=== PATIENT | female | born 1940 | race Caucasian/White ===

== ENCOUNTER 2016-06-15 11:59 | Emergency (ER) | payer MEDICARE, BC ==
[2016-06-15] MEDS ORDERED: SODIUM CHLORIDE 0.9% 1,000 ML IV ONE (12:12)
--- NOTE | 2016-06-15 12:18 | ED ---
Fall HPI - General Chief Complaint: Fall Stated Complaint: Fall Time Seen by Provider: 06/15/16 11:59 Source: patient, EMS, RN notes reviewed, old records reviewed Mode of arrival: EMS - History of Present Illness Initial Comments: This is a 76-year-old female who states she bent over to get dizzy lost her balance and fell forward striking the top of her frontal scalp on a door. She complains some anterior neck pain no loss of consciousness she denies any loss of function to her upper or lower extremities she denies any chest pain or shortness of breath at this time. She is on a blood thinner. She denies any other complaints at this time. She did come in by EMS with a cervical collar in place. Of note patient states she has Hirschsprung's disease and her abdomen is always distended she complains no bowel pain no nausea vomiting or diarrhea. MD Complaint: fall - Related Data Home Medications Medication Instructions Recorded Confirmed Atorvastatin [Lipitor] 20 mg PO HS 07/26/14 06/15/16 Fenofibrate [Lofibra] 160 mg PO DAILY 07/26/14 06/15/16 Multivitamins, Thera [Multivitamin] 1 tab PO DAILY 07/26/14 06/15/16 Sertraline [Zoloft] 50 mg PO DAILY 07/26/14 06/15/16 Ferrous Sulfate [Feosol] 325 mg PO BID 08/25/15 06/15/16 Omeprazole [PriLOSEC] 20 mg PO DAILY 08/25/15 06/15/16 Cholecalciferol [Vitamin D3] 1,000 unit PO DAILY 11/21/15 06/15/16 Albuterol Inhaler [Ventolin Hfa 1 - 2 puff INHALATION RT-Q6H PRN 11/22/15 Inhaler] Albuterol Nebulized [Ventolin 2.5 mg INHALATION RT-Q6H PRN 11/22/15 06/15/16 Nebulized] Budesonide [Pulmicort] 0.5 mg INHALATION RT-BID PRN 11/22/15 06/15/16 Potassium Chloride ER [K-Dur 10] 10 meq PO DAILY 11/22/15 06/15/16 Previous Rx's Medication Instructions Recorded Apixaban [Eliquis] 2.5 mg PO BID tablet 11/25/15 Allergies Allergy/AdvReac Type Severity Reaction Status Date / Time Penicillins Allergy Rash/Hives Verified 06/15/16 13:38 Review of Systems ROS Statement: Those systems with pertinent positive or pertinent negative responses have been documented in the HPI. ROS Other: All systems not noted in ROS Statement are negative. Past Medical History Past Medical History: Atrial Fibrillation, Cancer, Deep Vein Thrombosis (DVT), Hyperlipidemia, Osteoarthritis (OA), Skin Disorder Additional Past Medical History / Comment(s): Hx. of anemia, edema in both lower extremity. Right breast Ca. 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 Past Anesthesia/Blood Transfusion Reactions: No Reported Reaction Additional Past Anesthesia/Blood Transfusion Reaction / Comment(s): no previous blood transfusions Past Psychological History: Depression Smoking Status: Never smoker Past Alcohol Use History: None Reported Past Drug Use History: None Reported - Past Family History Mother Family Medical History: Coronary Artery Disease (CAD), CVA/TIA Father Family Medical History: CVA/TIA General Exam - General Exam Comments Initial Comments: This is a well-developed well-nourished awake alert oriented 3 female she does demonstrate a Najma Coma Scale of 15 Limitations: no limitations General appearance: alert, in no apparent distress Head exam: Present: atraumatic, normocephalic, normal inspection Eye exam: Present: normal appearance, PERRL, EOMI. Absent: scleral icterus, conjunctival injection, periorbital swelling ENT exam: Present: normal exam, mucous membranes moist Neck exam: Present: normal inspection. Absent: tenderness, meningismus, lymphadenopathy Respiratory exam: Present: normal lung sounds bilaterally. Absent: respiratory distress, wheezes, rales, rhonchi, stridor Cardiovascular Exam: Present: regular rate, normal rhythm, normal heart sounds. Absent: systolic murmur, diastolic murmur, rubs, gallop, clicks GI/Abdominal exam: Present: soft, normal bowel sounds. Absent: distended, tenderness, guarding, rebound, rigid Extremities exam: Present: full ROM, normal capillary refill, pedal edema. Absent: tenderness, joint swelling, calf tenderness Back exam: Present: normal inspection Neurological exam: Present: alert, oriented X3, CN II-XII intact Psychiatric exam: Present: normal affect, normal mood Skin exam: Present: warm, dry, intact, normal color. Absent: rash Course Vital Signs 06/15/16 12:00 Temperature 98.3 F Pulse Rate 84 Respiratory 22 Rate Blood Pressure 166/74 O2 Sat by Pulse 95 Oximetry Medical Decision Making - Lab Data Result diagrams: 06/15/16 12:06 06/15/16 12:06 Lab Results 06/15/16 06/15/16 06/15/16 Range/Units 12:06 12:06 12:06 WBC 7.3 (3.8-10.6) k/uL RBC 4.43 (3.80-5.40) m/uL Hgb 12.1 (11.4-16.0) gm/dL Hct 38.0 (34.0-46.0) % MCV 85.7 (80.0-100.0) fL MCH 27.2 (25.0-35.0) pg MCHC 31.7 (31.0-37.0) g/dL RDW 14.8 (11.5-15.5) % Plt Count 288 (150-450) k/uL Neutrophils % 60 % Lymphocytes % 27 % Monocytes % 7 % Eosinophils % 3 % Basophils % 1 % Neutrophils # 4.4 (1.3-7.7) k/uL Lymphocytes # 2.0 (1.0-4.8) k/uL Monocytes # 0.5 (0-1.0) k/uL Eosinophils # 0.2 (0-0.7) k/uL Basophils # 0.1 (0-0.2) k/uL PT (9.0-12.0) sec INR (<1.1) APTT (22.0-30.0) sec Sodium 145 (137-145) mmol/L Potassium 3.7 (3.5-5.1) mmol/L Chloride 106 (98-107) mmol/L Carbon Dioxide 27 (22-30) mmol/L Anion Gap 12 mmol/L BUN 23 H (7-17) mg/dL Creatinine 0.76 (0.52-1.04) mg/dL Est GFR (MDRD) Af Amer >60 (>60 ml/min/1.73 sqM) Est GFR (MDRD) Non-Af >60 (>60 ml/min/1.73 sqM) Glucose 133 H (74-99) mg/dL Calcium 9.7 (8.4-10.2) mg/dL Magnesium 2.0 (1.6-2.3) mg/dL Total Bilirubin 0.4 (0.2-1.3) mg/dL AST 26 (14-36) U/L ALT 34 (9-52) U/L Alkaline Phosphatase 58 (38-126) U/L Total Creatine Kinase 51 (30-135) U/L CK-MB (CK-2) 0.7 (0.0-2.4) ng/mL CK-MB (CK-2) Rel Index 1.4 Troponin I <0.012 (0.000-0.034) ng/mL Total Protein 7.3 (6.3-8.2) g/dL Albumin 3.9 (3.5-5.0) g/dL 06/15/16 Range/Units 12:06 WBC (3.8-10.6) k/uL RBC (3.80-5.40) m/uL Hgb (11.4-16.0) gm/dL Hct (34.0-46.0) % MCV (80.0-100.0) fL MCH (25.0-35.0) pg MCHC (31.0-37.0) g/dL RDW (11.5-15.5) % Plt Count (150-450) k/uL Neutrophils % % Lymphocytes % % Monocytes % % Eosinophils % % Basophils % % Neutrophils # (1.3-7.7) k/uL Lymphocytes # (1.0-4.8) k/uL Monocytes # (0-1.0) k/uL Eosinophils # (0-0.7) k/uL Basophils # (0-0.2) k/uL PT 10.4 (9.0-12.0) sec INR 1.0 (<1.1) APTT 20.6 L (22.0-30.0) sec Sodium (137-145) mmol/L Potassium (3.5-5.1) mmol/L Chloride (98-107) mmol/L Carbon Dioxide (22-30) mmol/L Anion Gap mmol/L BUN (7-17) mg/dL Creatinine (0.52-1.04) mg/dL Est GFR (MDRD) Af Amer (>60 ml/min/1.73 sqM) Est GFR (MDRD) Non-Af (>60 ml/min/1.73 sqM) Glucose (74-99) mg/dL Calcium (8.4-10.2) mg/dL Magnesium (1.6-2.3) mg/dL Total Bilirubin (0.2-1.3) mg/dL AST (14-36) U/L ALT (9-52) U/L Alkaline Phosphatase (38-126) U/L Total Creatine Kinase (30-135) U/L CK-MB (CK-2) (0.0-2.4) ng/mL CK-MB (CK-2) Rel Index Troponin I (0.000-0.034) ng/mL Total Protein (6.3-8.2) g/dL Albumin (3.5-5.0) g/dL - EKG Data -: EKG Interpreted by Me EKG shows normal: sinus rhythm (Sinus rhythm with occasional PVC. Rate was 80 MT interval 138 QRS duration 96 QT/QTC of 42/463 st-t wave changes.) - Radiology Data Radiology results: report reviewed (I did review the imaging and reports no acute findings the patient has a long-standing history of abdominal viscus dilatation.), image reviewed Disposition Clinical Impression: Fall, Forehead contusion, Dehydration Disposition: HOME SELF-CARE Condition: Good Instructions: Fall Prevention for Older Adults (ED), Dehydration (ED), Facial Contusion (ED) Referrals: Kike Tucker DO [Primary Care Provider] - 1-2 days
[2016-06-15 12:30] LABS: Basophils # (A) 0.1 k/uL (0-0.2); Basophils % (A) 1 %; CH 27.5; CHCM 32.1; Eosinophils # (A) 0.2 k/uL (0-0.7); Eosinophils % (A) 3 %; HDW 2.79; HGB 12.1 gm/dL (11.4-16.0); Luc # (Auto) 0.15; Luc % (Auto) 2; Lymphocytes % (A) 27 %; MCH 27.2 pg (25.0-35.0); MCHC 31.7 g/dL (31.0-37.0); MCV 85.7 fL (80.0-100.0); Mean Platelet Volume 6.6; Monocytes # (A) 0.5 k/uL (0-1.0); Monocytes % (A) 7 %; Neutrophils # (A) 4.4 k/uL (1.3-7.7); Neutrophils % (A) 60 %; RBC 4.43 m/uL (3.80-5.40); RDW 14.8 % (11.5-15.5); WBC 7.3 k/uL (3.8-10.6); WBC (Perox) 7.55
[2016-06-15 12:41] LABS: ALT 34 U/L (9-52); AST 26 U/L (14-36); Alkaline Phosphatase 58 U/L (38-126); Anion Gap 12 mmol/L; Blood Urea Nitrogen 23 mg/dL (7-17); Calcium 9.7 mg/dL (8.4-10.2); Carbon Dioxide 27 mmol/L (22-30); Chloride 106 mmol/L (98-107); Glucose 133 mg/dL (74-99); Non-African American GFR(MDRD) >60 (>60 ml/min/1.73 sqM); Potassium 3.7 mmol/L (3.5-5.1); Sodium 145 mmol/L (137-145); Total Bilirubin 0.4 mg/dL (0.2-1.3); Total Protein 7.3 g/dL (6.3-8.2)
--- NOTE | 2016-06-15 12:49 | CT ---
EXAMINATION TYPE: CT brain rhiannon wo con DATE OF EXAM: 06/15/2016 12:35 PM COMPARISON: NONE HISTORY: 76-year-old female with fall and pain CT DLP: 1832 mGycm Automated exposure control for dose reduction was used. Technique: Examination of the head was done in axial plane without intravenous contrast. Coronal and sagittal reconstructions performed. CT of the cervical spine was obtained in axial plane without intravenous injection of contrast mater ial. Coronal and sagittal reformatted images were obtained from the axial views for evaluation of f ractures, spinal alignment and canal. FINDINGS: Head: There is no evidence of acute intracranial hemorrhage, acute ischemic changes, mass, mass-effect, or extra-axial fluid collection. There is no effacement of cerebral sulci or basal subarachnoid cister ns. There is no hydrocephalus. There is no midline shift. Randall-white matter distinction is preserv ed. Very mild generalized supratentorial volume loss is similar to prior. There is a mild right frontal scalp contusion without underlying calvarial fracture. Normal variation of hyperostosis frontalis interna. Paranasal sinuses and mastoid air cells are well pneumatized. Cervical spine: No craniocervical junction abnormality, predental space widening, or prevertebral soft tissue swellin g. 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 Moderate variable multilevel degenerative disc disease is present greatest at C5-C6 where disc osteop hyte complex causes mild narrowing of the spinal canal. No acute fracture or malalignment of the cervical spine. Variable mild neuroforaminal stenoses are present, greatest on the right at C5-C6. Sagittal and coronal reformatted images confirm above findings. COMBINED IMPRESSION: 1. Mild right frontal scalp contusion. No acute intracranial abnormality seen. 2. No acute fracture or malalignment of the cervical spine. Mild to moderate spondylotic change.
[2016-06-15 13:01] LABS: Creatine Kinase 51 U/L (30-135)
[2016-06-15 13:09] LABS: Prothrombin Time 10.4 sec (9.0-12.0)
[2016-06-15 13:13] LABS: Creatine Kinase MB 0.7 ng/mL (0.0-2.4); Troponin I <0.012 ng/mL (0.000-0.034)
[2016-06-15 13:19] LABS: Partial Thromboplastin Time 20.6 sec (22.0-30.0)
--- NOTE | 2016-06-15 13:35 | XR ---
EXAMINATION TYPE: XR chest 2V DATE OF EXAM: 06/15/2016 1:17 PM COMPARISON: Prior chest x-ray 25 Oct 2015 HISTORY: Pain, fall, trauma TECHNIQUE: Frontal and lateral views of the chest are obtained. FINDINGS: The heart remains enlarged. Patient is again rotated. No evident pneumothorax or pleural e ffusion. Dilated loops of bowel, air-filled stomach is again noted as on prior exam. No evident fract ure, there are overlying cardiac leads. Exam may be expiratory, question prominence of the interstiti um. There may be a spinal curvature. IMPRESSION: Persistence of marked cardiomegaly. Consider follow-up PA and lateral chest when stable. Additional findings above.
[2016-06-15 14:40] VITALS: BP 127/79; PULSE 62; RESP 18; TEMP 97.6
== END 2016-06-15 14:43 | disposition home or self-care (01) ==
LOC: EC 11:59
DX: S00.83XA Contusion of other part of head, initial encounter (principal); E86.0 Dehydration; W19.XXXA Unspecified fall, initial encounter; E78.5 Hyperlipidemia, unspecified; Z79.899 Other long term (current) drug therapy; Z79.01 Long term (current) use of anticoagulants; Q43.1 Hirschsprung's disease; Z88.0 Allergy status to penicillin; I48.91 Unspecified atrial fibrillation; F32.9 Major depressive disorder, single episode, unspecified; D64.9 Anemia, unspecified; M54.2 Cervicalgia
CPT/HCPCS: 36415; 70450; 71020; 72125; 80053; 82550; 82553; 83735; 84484; 85025; 85610; 85730; 93005; 99285

== ENCOUNTER → 2017-07-11 | Outpatient (CLI) | payer MEDICARE, BC ==
--- NOTE | 2017-07-11 14:30 | BD ---
EXAMINATION TYPE: MG DEXA axial skeleton. DATE OF EXAM: 07/11/2017 Comparison: DEXA bone scan October 13, 2015. CLINICAL HISTORY: Height: 63 in Weight: 216 FRAX RISK QUESTIONS: Alcohol (3 or more units per day): no Family History (Parent hip fracture): no Glucocorticoids (More than 3mos): inhaler for difficulty breathing-unsure what kind (Ex: prednisone, prednisolone, methylprednisolone, dexamethasone, and hydrocortisone). History of Fracture in Adulthood: no Secondary Osteoporosis: 1. Type 1 Diabetes: no 2. Hyperthyroidism: no 3. Menopause before 45: unsure 4. Malnutrition: no 5. Chronic liver disease: no Rheumatoid Arthritis: no Current Tobacco Use: no RISK FACTORS HISTORY OF: Family History of Osteoporosis: unsure Active: somewhat Diet low in dairy products/other sources of calcium: unsure Postmenopausal woman: yes Take estrogen and/or progesterone medications: no Lost more than 2 inches in height since high school: unsure Frequent falls: somewhat Poor Health: unsure Hyperparathyroidism: no Adrenal Insufficiency: no MEDICATIONS: Prednisone or other steroids: unsure Thyroid Medications: no Osteoporosis Medications: unsure-patient states she takes a "bone pill" Which medication: unsure How Long: "quite a while" Additional Medications: blood thinners Additional History: Breast CA 2016 poor historian EXAM MEASUREMENTS: Bone mineral densitometry was performed using the [employer] System. Bone mineral density as measured about the Lumbar spine is: ----- L1-L4(G/cm2): 1.041 T Score Values are as follows: ----- L2: -0.3 ----- L3: -1.0 ----- L4: -1.3 ----- L1-L4: -1.2 Bone mineral density has: Increased 6.2% since study of: 10/13/2015 Bone mineral density about the R hip (g/cm2): 0.890 Bone mineral density about the L hip (g/cm2): 0.802 T Score values are as follows: -----R Neck: -1.1 -----L Neck: -1.7 -----R Total: -0.9 -----L Total: -0.7 Bone mineral density has: Decreased -6.9% since study of: 10/13/2015 IMPRESSION: Osteopenia (T Score between -2.5 and -1) is redemonstrated in both hips and low back. There remains slightly increased risk of fracture and the patient may be considered for treatment. Re-Screen 2-5 years. NOTE: T-SCORE=SD OF THE YOUNG ADULT MEAN.
== END | disposition home or self-care (01) ==
LOC: RADBDWWP 09:24
PROVIDERS: ATTEND Internal Medicine Hematology & Oncology
DX: M85.852 Other specified disorders of bone density and structure, left thigh (principal); M85.851 Other specified disorders of bone density and structure, right thigh; M85.88 Other specified disorders of bone density and structure, other site; N95.1 Menopausal and female climacteric states
CPT/HCPCS: 77080

== ENCOUNTER → 2018-08-30 | Outpatient (CLI) | payer MEDICARE, BC ==
--- NOTE | 2018-08-30 09:33 | BD ---
EXAMINATION TYPE: Axial Bone Density DATE OF EXAM: 08/30/2018 COMPARISON: Prior DEXA bone scan July 11, 2017. CLINICAL HISTORY: Disorder of bone density and structure per order. Height: 5 FT 4 IN Weight: 213 FRAX RISK QUESTIONS: Secondary Osteoporosis: 3. Menopause before 45: UNSURE RISK FACTORS HISTORY OF: Postmenopausal woman: UNSURE WHEN Lost more than 2 inches in height since high school: YES MEDICATIONS: Additional Medications: TAKES MEDS, STATES SHE TAKES A BONE PILL, NOT SURE WHAT SHE TAKES OR WHAT IT IS FOR. Additional History: POOR HEALTH HISTORIAN EXAM MEASUREMENTS: Bone mineral densitometry was performed using the [employer] System. Bone mineral density as measured about the Lumbar spine is: ----- L1-L4(G/cm2): 0.990 T Score Values are as follows: ----- L2: -1.5 ----- L3: -1.2 ----- L4: -1.5 ----- L1-L4: -1.6 Bone mineral density has: DECREASED -5.5 % since study of: 2017 Bone mineral density about the R hip (g/cm2): 0.855 Bone mineral density about the L hip (g/cm2): 0.763 T Score values are as follows: -----R Neck: -1.3 -----L Neck: -2.0 -----R Total: -0.7 -----L Total: -1.2 Bone mineral density has: DECREASED -1.7 % since study of: 2017 IMPRESSION: Osteopenia (T Score between -2.5 and -1) remains present in both hips and low back. Bone density show s decrease from recent prior. There remains slightly increased risk of fracture and the patient may be considered for treatment. Re-Screen 2-5 years. NOTE: T-SCORE=SD OF THE YOUNG ADULT MEAN.
== END | disposition home or self-care (01) ==
LOC: RADBDWWP 08:28
PROVIDERS: ATTEND Internal Medicine Hematology & Oncology
DX: M85.851 Other specified disorders of bone density and structure, right thigh (principal); M85.852 Other specified disorders of bone density and structure, left thigh; M85.88 Other specified disorders of bone density and structure, other site; C50.411 Malignant neoplasm of upper-outer quadrant of right female breast; Z79.890 Hormone replacement therapy
CPT/HCPCS: 77080

== ENCOUNTER → 2019-12-04 | Outpatient (CLI) | payer MEDICARE, BC ==
[2019-12-04 23:14] LABS: African American GFR (CKD) 81.8 (60.0-200.0); Anion Gap 9.8 mmol/L (4.00-12.00); Carbon Dioxide 27.2 mmol/L (21.6-31.8); Chol/HDL Ratio 4.1; Non-African American GFR(CKD) 70.6 (60.0-200.0); Potassium 4.1 mmol/L (3.5-5.5)
== END | disposition home or self-care (01) ==
LOC: LABWHC1 14:24
PROVIDERS: ATTEND Internal Medicine Cardiovascular Disease
DX: E78.2 Mixed hyperlipidemia (principal)
CPT/HCPCS: 36415; 80051; 80061; 82565; 84450; 84460; 84520

== ENCOUNTER → 2020-12-28 | Outpatient (CLI) | payer MEDICARE, BC ==
--- NOTE | 2020-12-28 14:30 | MM ---
Reason for exam: additional evaluation requested from prior study. Last mammogram was performed 5 years and 5 months ago. History: Patient has history of breast cancer at age 75. Malignant MG pre op needle loc RT of the right breast, August 27, 2015. Malignant US biopsy breast VAD RT of the right breast, July 16, 2015. Took antineoplastic for 5 years beginning at age 75. Physical Findings: Nurse did not find any significant physical abnormalities on exam. MG 3D Diag Mammo W/Cad MASSIMO Bilateral CC and MLO view(s) were taken. Prior study comparison: July 16, 2015, right breast MG diagnostic mammo RT wo CAD. July 02, 2015, bilateral MG 3d diag mammo w/cad MASSIMO. There are scattered fibroglandular densities. There is chronic nodularity in the left breast. Post surgical and post therapy change right breast. Dystrophic calcifications at the surgical scar. No significant new findings when compared with previous films. These results were verbally communicated with the patient and result sheet given to the patient on 12/28/20. ASSESSMENT: Benign, BI-RAD 2 RECOMMENDATION: Follow-up diagnostic mammogram of both breasts in 1 year.
--- NOTE | 2020-12-28 18:51 | BD ---
EXAMINATION TYPE: Axial Bone Density POOR HISTORIAN DATE OF EXAM: 12/28/2020 COMPARISON: 08.30.2018 CLINICAL HISTORY: 80 YR OLD FEMALE.....ICD-10 CODE: M85.9 OSTEOPENIA Height: 63.2 Weight: 194 FRAX RISK QUESTIONS: Family History (Parent hip fracture): UNSURE Glucocorticoids (More than 3mos): MAYBE POOR HISTORIAN (Ex: prednisone, prednisolone, methylprednisolone, dexamethasone, and hydrocortisone). 1. Type 1 Diabetes: PT SAYS NO Current Tobacco Use: STOPPED LONG AGO RISK FACTORS HISTORY OF: Family History of Osteoporosis: NOT KNOWN Diet low in dairy products/other sources of calcium: YES Postmenopausal woman: YES, AT AGE 46 YRS OLD Lost more than 2 inches in height since high school: YES, Frequent falls: YES, UNSTEADY, POOR HISTORIAN ALSO Hyperparathyroidism: UNKNOWN Adrenal Insufficiency: UNKNOWN MEDICATIONS: Osteoporosis Medications: YES, DOESN'T KNOW NAME Additional Medications: BP MEDS, ANTIANXIETY/DEPRESSANTS, RADIATION, ANASTROZOLE, REFLUX MEDS, STATI N FOR CHOLESTEROL, UNKNOWN FOR THE REST, ELIQUIS, Additional History: HX OF RT BREAST CANCER, HYPERTENSION, REFLUX, CHOLESTEROL, EXAM MEASUREMENTS: Bone mineral densitometry was performed using the [employer] System. Bone mineral density as measured about the Lumbar spine is: ----- L1-L4(G/cm2): 1.017 T Score Values are as follows: ----- L1: -3.3 ----- L2: -1.2 ----- L3: -0.5 ----- L4: -0.6 ----- L1-L4: -1.4 Bone mineral density has: Increased 6.8% since study of: 08.30.2018 Bone mineral density about the R hip (g/cm2): 0.865 Bone mineral density about the L hip (g/cm2): 0.906 T Score values are as follows: -----R Neck: -1.5 -----L Neck: -1.8 -----R Total: -1.1 -----L Total: -0.8 Bone mineral density has: Decreased -0.3% since study of: 08.30.2018 FRAX%s: THERE IS A 29.2% CHANCE FOR A MAJOR OSTEOPOROTIC FX AND A 8.1% FOR HIP......PROBABILITY F OR FX IN 10 YRS TIME IMPRESSION: Osteopenia (T Score between -2.5 and -1). There is slightly increased risk of fracture and the patient may be considered for treatment. Re-Screen 2-5 years. NOTE: T-SCORE=SD OF THE YOUNG ADULT MEAN.
== END | disposition home or self-care (01) ==
LOC: RADBDWWP 12:15
PROVIDERS: ATTEND Internal Medicine Hematology & Oncology
DX: R92.1 Mammographic calcification found on diagnostic imaging of breast (principal); M85.89 Other specified disorders of bone density and structure, multiple sites; Z85.3 Personal history of malignant neoplasm of breast
CPT/HCPCS: 77080; 77066; G0279; 77062

== ENCOUNTER → 2021-02-13 | Outpatient (CLI) | payer MEDICARE, BC ==
[2021-02-13 20:07] LABS: Chol/HDL Ratio 3.87; LDL Cholesterol,Calculated 61.4 mg/dL (0.0-131.0); VLDL Calculation 27.6 mg/dL (5.00-40.00)
== END | disposition home or self-care (01) ==
LOC: LABWHC1 08:50
PROVIDERS: ATTEND Internal Medicine Cardiovascular Disease
DX: E78.2 Mixed hyperlipidemia (principal)
CPT/HCPCS: 36415; 80061; 84450; 84460

== ENCOUNTER 2021-08-23 11:05 | Emergency (ER) | payer MEDICARE, BC ==
[2021-08-23 11:15] VITALS: TEMP 98.2
[2021-08-23] MEDS ORDERED: SODIUM CHLORIDE 0.9% 1,000 ML IV STA (11:15)
--- NOTE | 2021-08-23 11:23 | ED ---
General Adult HPI - General Chief complaint: Dizziness Stated complaint: Dizziness Time Seen by Provider: 08/23/21 11:10 Source: patient, RN notes reviewed, old records reviewed Mode of arrival: EMS Limitations: no limitations - History of Present Illness Initial comments: Patient is an 81-year-old female with past medical history remarkable for atrial fibrillation on home across, DVTs, chronic edema bilateral lower extremities who presents to emergency room complaining of lightheadedness and trazodone pain following episodes of nausea and vomiting. Patient states she woke up and felt weak. Had 1-5 episodes of nonbilious and bloody emesis. Denies any concern for constipation. Still been passing flatus. Last known bowel movement was yesterday and was somewhat loose. Does have history of multiple abdominal surgeries for Hirschsprung's disease. Denies any chest pain, shortness breath, fevers, chills, cough. Denies any lightheadedness. His no other acute complaints at this time. Presents over concern for her abdominal pain. Denies any urinary complaints. Has been compliant with her blood thinner medication. Denies any trauma or hitting her head. Patient is the historian. No recent loss of weight there is significant. - Related Data Home Medications Medication Instructions Recorded Confirmed Atorvastatin [Lipitor] 20 mg PO HS 07/26/14 06/15/16 Fenofibrate [Lofibra] 160 mg PO DAILY 07/26/14 06/15/16 Multivitamins, Thera [Multivitamin 1 tab PO DAILY 07/26/14 06/15/16 (formulary)] Sertraline [Zoloft] 50 mg PO DAILY 07/26/14 06/15/16 Ferrous Sulfate [Feosol] 325 mg PO BID 08/25/15 06/15/16 Omeprazole [PriLOSEC] 20 mg PO DAILY 08/25/15 06/15/16 Cholecalciferol [Vitamin D3 (25 1,000 unit PO DAILY 11/21/15 06/15/16 Mcg = 1000 Iu)] Albuterol Inhaler (Mhu) [Ventolin 1 - 2 puff INHALATION RT-Q6H PRN 11/22/15 06/15/16 Hfa Inhaler (Mhu)] Albuterol Nebulized [Ventolin 2.5 mg INHALATION RT-Q6H PRN 11/22/15 06/15/16 Nebulized] Budesonide [Pulmicort] 0.5 mg INHALATION RT-BID PRN 11/22/15 06/15/16 Potassium Chloride ER [K-Dur 10] 10 meq PO DAILY 11/22/15 06/15/16 Previous Rx's Medication Instructions Recorded Apixaban [Eliquis] 2.5 mg PO BID tablet 11/25/15 Allergies Allergy/AdvReac Type Severity Reaction Status Date / Time Penicillins Allergy Rash/Hives Verified 08/23/21 11:17 Review of Systems ROS Statement: Those systems with pertinent positive or pertinent negative responses have been documented in the HPI. Review of Systems: CONST: Denies fever EYES: Denies blurry vision ENT: Denies nasal congestion C/V: Denies Chest pain RESP: Denies shortness of breath GI: Endorses abdominal pain : Denies dysuria SKIN: Denies rash. MSK: Denies joint pain. NEURO: Denies headache ROS Other: All systems not noted in ROS Statement are negative. Past Medical History Past Medical History: Atrial Fibrillation, Cancer, Deep Vein Thrombosis (DVT), Hyperlipidemia, Osteoarthritis (OA), Skin Disorder Additional Past Medical History / Comment(s): Hx. of anemia, edema in both lower extremity. Right breast Ca. 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 Past Anesthesia/Blood Transfusion Reactions: No Reported Reaction Additional Past Anesthesia/Blood Transfusion Reaction / Comment(s): no previous blood transfusions Past Psychological History: Depression Smoking Status: Former smoker Past Alcohol Use History: None Reported Past Drug Use History: None Reported - Past Family History Mother Family Medical History: Coronary Artery Disease (CAD), CVA/TIA Father Family Medical History: CVA/TIA General Exam - General Exam Comments Initial Comments: General: Appears in no acute distress. HEAD: Normal with no signs of head trauma. EYES: PERRLA, EOMI, conjunctiva normal, no discharge. ENT: Hearing grossly intact, normal oropharynx. Mildly dry mucous membranes. RESPIRATORY: Clear breath sounds bilaterally. No wheezes, rales, or rhonchi. C/V: Regular rate and rhythm. S1 and S2 auscultated. Peripheral pulses 2+ intact throughout. 1+ pitting edema bilateral lower extremities. ABD: Abdomen is soft, nondistended. Patient is tender to palpation diffusely. There is no rebound tenderness. No guarding. No peritoneal signs. EXT: Normal range of motion, no obvious deformity SKIN: No rashes or lesions observed on exposed skin. NEURO: Alert and oriented x 4. Cranial nerves II-XII intact. No focal sensory or strength deficits. Limitations: no limitations Course Vital Signs 08/23/21 08/23/21 08/23/21 11:12 11:52 13:04 Temperature 98.2 F Pulse Rate 68 62 54 L Respiratory 18 16 18 Rate Blood Pressure 116/86 116/86 124/82 O2 Sat by Pulse 95 97 99 Oximetry Medical Decision Making - Medical Decision Making Based on the patient's presentation and physical exam, I'm concerned for acute intra-abdominal process for the patient. Cannot rule out atypical presentation for ACS either. Has been multiple hours since onset of symptoms. Therefore cardiac workup in addition to abdominal labs will be obtained. We'll also obtain a CT abdomen and pelvis. She will also be symptomatically treated with 1 L fluid bolus, as well as a GI cocktail. Patient was in agreement this plan. EKG showed no signs of acute ischemia. Chest x-ray showed no acute cardiopulmonary process. There is gas distended stomach and bowel with this which is chronic. Laboratory studies were remarkable for a elevated lactic acid of 2.3 likely secondary to dehydration. Troponin is undetectable. BNP is unremarkable. Urinalysis is a contaminated catch an unreliable. On reevaluation, patient is feeling improved. CT imaging with contrast was obtained after labs were returned, and revealed her chronic herschprung disease findings as well as a bilobed mass located in the duodenum this increased in size, with differential including carcinoid tumor, adenocarcinoma. Radiology recommends a surgical consult dictation and possible PET scanning for further workup. There is also subtle hypodensity along the central uterus and they recommend a pelvic ultrasound. There is also chronically found distended transverse colon with a history of herchsprung disease, and this is a stable finding. I discussed the findings of CT imaging with the patient. I do believe it is best for the patient to be admitted to the hospital at this time. She was in agreement this plan. I spoke with the admitting physician, Dr. Elliott of [facility] who accepted the patient. Based on CT findings, Dr. elliott and I agree that we will consult Gen. surgery at this time. I did speak with the on-call general surgeon, Dr. Glover who requested the patient be transferred to a tertiary center for an evaluation by surgery at these locations. I discussed this with Dr. elliott, and admission was canceled. Patient will be transferred. Dr. elliott was made a consult. I spoke with [facility], and they accepted the patient. Accepting physician is Dr. Kitchen. Patient was transferred in stable condition. Updated the patient and they were in agreement this plan. They requested [facility] as a transfer destination. Vital Signs remained within normal limits and stable throughout her stay. - Lab Data Result diagrams: 08/23/21 11:18 08/23/21 11:18 Lab Results 08/23/21 08/23/21 08/23/21 Range/Units 11:18 11:18 11:18 WBC 10.5 (3.8-10.6) k/uL RBC 4.97 (3.80-5.40) m/uL Hgb 14.4 (11.4-16.0) gm/dL Hct 45.0 (34.0-46.0) % MCV 90.6 (80.0-100.0) fL MCH 28.9 (25.0-35.0) pg MCHC 31.9 (31.0-37.0) g/dL RDW 14.9 (11.5-15.5) % Plt Count 247 (150-450) k/uL MPV 7.2 Neutrophils % 51 % Lymphocytes % 38 % Monocytes % 7 % Eosinophils % 2 % Basophils % 1 % Neutrophils # 5.4 (1.3-7.7) k/uL Lymphocytes # 4.0 (1.0-4.8) k/uL Monocytes # 0.7 (0-1.0) k/uL Eosinophils # 0.2 (0-0.7) k/uL Basophils # 0.1 (0-0.2) k/uL PT 10.6 (9.0-12.0) sec INR 1.0 (<1.2) APTT 21.5 L (22.0-30.0) sec Sodium 141 (137-145) mmol/L Potassium 3.8 (3.5-5.1) mmol/L Chloride 109 H (98-107) mmol/L Carbon Dioxide 23 (22-30) mmol/L Anion Gap 9 mmol/L BUN 19 H (7-17) mg/dL Creatinine 0.92 (0.52-1.04) mg/dL Est GFR (CKD-EPI)AfAm 68 (>60 ml/min/1.73 sqM) Est GFR (CKD-EPI)NonAf 59 (>60 ml/min/1.73 sqM) Glucose 135 H (74-99) mg/dL Plasma Lactic Acid Hank (0.7-2.0) mmol/L Calcium 9.4 (8.4-10.2) mg/dL Magnesium 2.0 (1.6-2.3) mg/dL Total Bilirubin 0.6 (0.2-1.3) mg/dL AST 23 (14-36) U/L ALT 16 (4-34) U/L Alkaline Phosphatase 85 (38-126) U/L Troponin I (0.000-0.034) ng/mL NT-Pro-B Natriuret Pep pg/mL Total Protein 7.9 (6.3-8.2) g/dL Albumin 4.2 (3.5-5.0) g/dL Urine Color Urine Appearance (Clear) Urine pH (5.0-8.0) Ur Specific Freeman (1.001-1.035) Urine Protein (Negative) Urine Glucose (UA) (Negative) Urine Ketones (Negative) Urine Blood (Negative) Urine Nitrite (Negative) Urine Bilirubin (Negative) Urine Urobilinogen (<2.0) mg/dL Ur Leukocyte Esterase (Negative) Urine RBC (0-5) /hpf Urine WBC (0-5) /hpf Ur Squamous Epith Cells (0-4) /hpf Urine Bacteria (None) /hpf Hyaline Casts (0-2) /lpf Urine Mucus (None) /hpf 08/23/21 08/23/21 08/23/21 Range/Units 11:18 11:18 11:18 WBC (3.8-10.6) k/uL RBC (3.80-5.40) m/uL Hgb (11.4-16.0) gm/dL Hct (34.0-46.0) % MCV (80.0-100.0) fL MCH (25.0-35.0) pg MCHC (31.0-37.0) g/dL RDW (11.5-15.5) % Plt Count (150-450) k/uL MPV Neutrophils % % Lymphocytes % % Monocytes % % Eosinophils % % Basophils % % Neutrophils # (1.3-7.7) k/uL Lymphocytes # (1.0-4.8) k/uL Monocytes # (0-1.0) k/uL Eosinophils # (0-0.7) k/uL Basophils # (0-0.2) k/uL PT (9.0-12.0) sec INR (<1.2) APTT (22.0-30.0) sec Sodium (137-145) mmol/L Potassium (3.5-5.1) mmol/L Chloride (98-107) mmol/L Carbon Dioxide (22-30) mmol/L Anion Gap mmol/L BUN (7-17) mg/dL Creatinine (0.52-1.04) mg/dL Est GFR (CKD-EPI)AfAm (>60 ml/min/1.73 sqM) Est GFR (CKD-EPI)NonAf (>60 ml/min/1.73 sqM) Glucose (74-99) mg/dL Plasma Lactic Acid Hank 2.3 H* (0.7-2.0) mmol/L Calcium (8.4-10.2) mg/dL Magnesium (1.6-2.3) mg/dL Total Bilirubin (0.2-1.3) mg/dL AST (14-36) U/L ALT (4-34) U/L Alkaline Phosphatase (38-126) U/L Troponin I <0.012 (0.000-0.034) ng/mL NT-Pro-B Natriuret Pep 241 pg/mL Total Protein (6.3-8.2) g/dL Albumin (3.5-5.0) g/dL Urine Color Urine Appearance (Clear) Urine pH (5.0-8.0) Ur Specific Freeman (1.001-1.035) Urine Protein (Negative) Urine Glucose (UA) (Negative) Urine Ketones (Negative) Urine Blood (Negative) Urine Nitrite (Negative) Urine Bilirubin (Negative) Urine Urobilinogen (<2.0) mg/dL Ur Leukocyte Esterase (Negative) Urine RBC (0-5) /hpf Urine WBC (0-5) /hpf Ur Squamous Epith Cells (0-4) /hpf Urine Bacteria (None) /hpf Hyaline Casts (0-2) /lpf Urine Mucus (None) /hpf 08/23/21 Range/Units 11:45 WBC (3.8-10.6) k/uL RBC (3.80-5.40) m/uL Hgb (11.4-16.0) gm/dL Hct (34.0-46.0) % MCV (80.0-100.0) fL MCH (25.0-35.0) pg MCHC (31.0-37.0) g/dL RDW (11.5-15.5) % Plt Count (150-450) k/uL MPV Neutrophils % % Lymphocytes % % Monocytes % % Eosinophils % % Basophils % % Neutrophils # (1.3-7.7) k/uL Lymphocytes # (1.0-4.8) k/uL Monocytes # (0-1.0) k/uL Eosinophils # (0-0.7) k/uL Basophils # (0-0.2) k/uL PT (9.0-12.0) sec INR (<1.2) APTT (22.0-30.0) sec Sodium (137-145) mmol/L Potassium (3.5-5.1) mmol/L Chloride (98-107) mmol/L Carbon Dioxide (22-30) mmol/L Anion Gap mmol/L BUN (7-17) mg/dL Creatinine (0.52-1.04) mg/dL Est GFR (CKD-EPI)AfAm (>60 ml/min/1.73 sqM) Est GFR (CKD-EPI)NonAf (>60 ml/min/1.73 sqM) Glucose (74-99) mg/dL Plasma Lactic Acid Hank (0.7-2.0) mmol/L Calcium (8.4-10.2) mg/dL Magnesium (1.6-2.3) mg/dL Total Bilirubin (0.2-1.3) mg/dL AST (14-36) U/L ALT (4-34) U/L Alkaline Phosphatase (38-126) U/L Troponin I (0.000-0.034) ng/mL NT-Pro-B Natriuret Pep pg/mL Total Protein (6.3-8.2) g/dL Albumin (3.5-5.0) g/dL Urine Color Yellow Urine Appearance Cloudy H (Clear) Urine pH 5.5 (5.0-8.0) Ur Specific Freeman 1.013 (1.001-1.035) Urine Protein Negative (Negative) Urine Glucose (UA) Negative (Negative) Urine Ketones Negative (Negative) Urine Blood Negative (Negative) Urine Nitrite Negative (Negative) Urine Bilirubin Negative (Negative) Urine Urobilinogen <2.0 (<2.0) mg/dL Ur Leukocyte Esterase Small H (Negative) Urine RBC 1 (0-5) /hpf Urine WBC 6 H (0-5) /hpf Ur Squamous Epith Cells 25 H (0-4) /hpf Urine Bacteria Many H (None) /hpf Hyaline Casts 11 H (0-2) /lpf Urine Mucus Rare H (None) /hpf - EKG Data -: EKG Interpreted by Me EKG Comments: 12-lead Electrocardiogram Interpretation Note EKG was reviewed and interpreted by myself. 12-lead ECG performed at 1116 is interpreted by me as revealing normal sinus rhythm at a rate of 61 beats per mi nute. [place] is normal. IA interval is 122 ms, QRS duration is 97 ms, QTc is 408 ms.. There were no ST or T wave abnormalities to suggest myocardial ischemia or injury. R wave progression across the precordium was satisfactory. By my interpretation this EKG is non-diagnostic for acute ischemia. There are occasional PVCs. Critical Care Time Critical Care Time: Yes Total Critical Care Time: 35 Critical Care Time: Upon my evaluation, this patient had a high probability of imminent or life- threatening deterioration due to duodenal mass, dehydration, nausea or vomiting, abdominal pain, which required my direct attention, intervention, and personal management. I have personally provided 35 minutes of critical care time exclusive of time spent on separately billable procedures. Time includes review of laboratory data, radiology results, discussion with consultants, and monitoring for potential decompensation. Interventions were performed as documented in my note. Disposition Clinical Impression: Abdominal pain, Abdominal mass, Nausea & vomiting, Dehydration, Duodenal mass Disposition: OTHER INSTITUTION NOT DEFINED Condition: Stable - Out of Hospital Transfer - Req. Specs Out of Hospital Transfer - Requested Specifics: Other Emergency Center (Transfer to [facility] for escalation of care for abd mass)
[2021-08-23] MEDS ORDERED: FAMOTIDINE 20 MG/2 ML VIAL IV STA (11:26)
[2021-08-23] MEDS ORDERED: ONDANSETRON 4 MG/2 ML VIAL IVP STA (11:26)
[2021-08-23] MEDS ORDERED: diphenhydrAMINE 50 MG/ML 1 ML VIAL IVP STA (11:26)
[2021-08-23 11:35] LABS: Basophils # (A) 0.1 k/uL (0-0.2); Basophils % (A) 1 %; Eosinophils # (A) 0.2 k/uL (0-0.7); Eosinophils % (A) 2 %; HGB 14.4 gm/dL (11.4-16.0); Lymphocytes % (A) 38 %; MCH 28.9 pg (25.0-35.0); MCHC 31.9 g/dL (31.0-37.0); MCV 90.6 fL (80.0-100.0); Mean Platelet Volume 7.2; Monocytes # (A) 0.7 k/uL (0-1.0); Monocytes % (A) 7 %; Neutrophils # (A) 5.4 k/uL (1.3-7.7); Neutrophils % (A) 51 %; Platelet Count 247 k/uL (150-450); RBC 4.97 m/uL (3.80-5.40); RDW 14.9 % (11.5-15.5); WBC 10.5 k/uL (3.8-10.6)
[2021-08-23 11:48] LABS: Prothrombin Time 10.6 sec (9.0-12.0)
[2021-08-23 11:55] LABS: Albumin 4.2 g/dL (3.5-5.0); Calcium 9.4 mg/dL (8.4-10.2); Potassium 3.8 mmol/L (3.5-5.1); Total Bilirubin 0.6 mg/dL (0.2-1.3); Total Protein 7.9 g/dL (6.3-8.2)
--- NOTE | 2021-08-23 12:04 | XR ---
EXAMINATION TYPE: XR chest 2V DATE OF EXAM: 08/23/2021 COMPARISON: Chest x-ray 06/15/2016 HISTORY: Weakness TECHNIQUE: Frontal and lateral views of the chest are obtained. FINDINGS: The gas filled stomach and bowel in the upper abdomen shows a similar appearance to prior chest x-ray. No evident pneumothorax or pleural effusion. Patient is rotated, the heart is likely enl arged. There is prominent epicardial fat pad. No evident airspace disease. IMPRESSION: No acute cardiopulmonary process. Gas-distended stomach and bowel is a chronic finding.
[2021-08-23 12:25] LABS: Partial Thromboplastin Time 21.5 sec (22.0-30.0)
[2021-08-23 12:33] LABS: Appearance,Urine Cloudy (Clear); Bacteria,Urine Many /hpf; Bilirubin,Urine Negative (Negative); Blood,Urine Negative (Negative); Color,Urine Yellow; Glucose,Urine (UA) Negative (Negative); Hyaline Casts,Urine 11 /lpf (0-2); Ketones,Urine Negative (Negative); Leukocyte Esterase,Urine Small (Negative); Mucus,Urine Rare /hpf; Nitrite,Urine Negative (Negative); PH, Urine 5.5 (5.0-8.0); Protein,Urine Negative (Negative); RBC,Urine 1 /hpf (0-5); Specific Gravity,Urine 1.013 (1.001-1.035); Squamous Epithelial Cell,Urine 25 /hpf (0-4); Urobilinogen,Urine <2.0 mg/dL (<2.0); WBC,Urine 6 /hpf (0-5)
--- NOTE | 2021-08-23 13:12 | CT ---
EXAMINATION TYPE: CT abdomen pelvis w con DATE OF EXAM: 08/23/2021 COMPARISON: 11/21/2015 HISTORY: 81-year-old female Abdominal pain, history of Hirschsprung's disease. TECHNIQUE: Contiguous axial scanning of the abdomen and pelvis following administration of 80 ml Isov ue 300 IV contrast. Delayed images through the kidneys and coronal/sagittal reconstructions performe d. CT DLP: 1241.6 mGycm Automated exposure control for dose reduction was used. FINDINGS: The heart is mildly enlarged without pericardial effusion. Some strandy atelectasis in the lower lung s without pleural effusion. No focal liver lesion. Cholecystectomy clips. No biliary ductal dilatation. Portal venous system is p atent. Adrenal glands, spleen with small anterior splenule, and atrophic pancreas show no gross abnormality. There is a bilobed enhancing and solid appearing mass at the junction of the third and fourth portion s of the duodenum measuring 3.3 cm craniocaudal versus approximately 1.7 cm on 11/21/2015. Reference a xial image 40 and coronal image 66. Consider PET/CT and/or surgical evaluation. No dilated small bowel, free fluid, or free air. Both descending and sigmoid colon as well as the ascending colon are relatively collapsed. No transit ion point is identified though the transverse colon remains markedly redundant and severely dilated m easuring up to 13.7 cm versus 14.0 cm, previously. There is mild to moderate stool within the rectum. Mild atherosclerotic calcifications infrarenal abdominal aorta. Some focal hypodensity along the cent ral uterus, axial image 65 and sagittal image 65. Uterus anteverted. Bladder urine distended. Mild pe lvic floor relaxation. Ovaries not clearly delineated from adjacent bowel loops. No abnormal fluid co llection the pelvis or pelvic lymphadenopathy. Bones: Osteitis pubis. Mild degenerative changes both hips. Moderate degenerative disc disease L3-L4 and L5-S1. Facet arthropathy lower lumbar spine. Moderate degenerative disc disease lower thoracic sp ine. IMPRESSION: 1. MARKEDLY DILATED AND REDUNDANT TRANSVERSE COLON WITH A CALIBER UP TO 13.7 CM. THIS IS IN COMPARISO N TO 14.0 CM, PREVIOUSLY. MEGACOLON AND HIRSCHSPRUNG'S DISEASE ARE DIFFERENTIAL CONSIDERATIONS WITH T HE LATTER FAVORED GIVEN STABILITY. CLINICALLY CORRELATE. 2. BILOBED MASS AT THE JUNCTION OF THE THIRD AND FOURTH PORTIONS OF THE DUODENUM MEASURING UP TO 3.3 CM. IN RETROSPECT, POSSIBLY MEASURING 1.7 CM IN 2016. GIST, CARCINOID TUMOR, AND ADENOCARCINOMA ARE D IFFERENTIAL CONSIDERATIONS. RECOMMEND SURGICAL CONSULTATION AND POSSIBLE PET/CT FOR FURTHER WORKUP. 3. SUBTLE HYPODENSITY ALONG THE CENTRAL UTERUS. NONEMERGENT PELVIC ULTRASOUND RECOMMENDED TO FURTHER ASSESS THE ENDOMETRIAL THICKNESS AND ASSESS THE NEED FOR ANY FURTHER WORKUP. 4. MILD CARDIOMEGALY AND MILD PELVIC FLOOR RELAXATION.
[2021-08-23] MEDS ORDERED: MORPHINE SULFATE 4 MG/ML SYRINGE IV PRN (13:25)
[2021-08-23] MEDS ORDERED: NALOXONE 0.4 MG/ML 1 ML VIAL IV PRN (13:25)
[2021-08-23] MEDS ORDERED: ONDANSETRON 4 MG/2 ML VIAL IVP PRN (13:25)
[2021-08-23] MEDS ORDERED: SODIUM CHLORIDE 0.9% 1,000 ML IV SCH (13:30)
[2021-08-23 15:01] VITALS: BP 128/78; PULSE 78; RESP 16
--- NOTE | 2021-08-23 17:59 | P.CONS ---
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 She presents because of feeling dizzy, cold sweats and feeling very weak and not eating today associated with abdominal pain, her pain is epigastric area rated more than 8 when she came to the hospital but now is much better at 2/10 in severity felt like sharp per patient, nonradiating. Associated with vomiting 3 times this morning with no blood. Her last bowel movement was yesterday and it was formed with no diarrhea. Also she denies any dysuria or urgency, no headache or weakness or dizziness or numbness currently. No smoking, alcohol or illicit drugs. Hemodynamically stable and vitals and labs reviewed showing unremarkable CBC and INR, BMP is also known significantly abnormal. Lactic acid slightly elevated most likely secondary to dehydration Liver enzymes not elevated. CT of the abdomen and pelvis with IV contrast showing markedly dilated and redundant transverse colon with a caliber up to 13.7 cm this is in comparison to 14.0 cm previously. Megacolon and Hirschsprung's disease are differential considerations with the latter favored given stability. Clinically correlate. 2 In contrast to many other causes 2. Bilobed mass at the junction of the third and fourth portions of the duodenum measuring up to 3.3 cm in retrospect, possibly measuring 1.7 cm in 2016. GIST, carcinoid tumor, adenocarcinoma are differential consideration. Recommend surgical consultation and possible PET/CT for further workup 3. Subtle hypodensity along the central uterus. Non-emergent pelvic ultrasound recommended to further assess the endometrial thickness and assess the need for any further workup For mild cardiomegaly and mild pelvic floor relaxation Review of Systems CONSTITUTIONAL: No fever, no malaise, no fatigue. HEENT: No recent visual problems or hearing problems. Denied any sore throat. CARDIOVASCULAR: No orthopnea, PND, no palpitations, no syncope. PULMONARY: No shortness of breath, no cough, no hemoptysis. GASTROINTESTINAL: No diarrhea,. Normoactive bowel sounds. NEUROLOGICAL: No headaches, no weakness, no numbness. HEMATOLOGICAL: Denies any bleeding or petechiae. GENITOURINARY: Denies any burning micturition, frequency, or urgency. MUSCULOSKELETAL/RHEUMATOLOGICAL: Denies any joint pain, swelling, or any muscle pain. ENDOCRINE: Denies any polyuria or polydipsia. Past Medical History Past Medical History: Atrial Fibrillation, Cancer, Deep Vein Thrombosis (DVT), Hyperlipidemia, Osteoarthritis (OA), Skin Disorder Additional Past Medical History / Comment(s): Hx. of anemia, edema in both lower extremity. Right breast Ca. 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 Past Anesthesia/Blood Transfusion Reactions: No Reported Reaction Additional Past Anesthesia/Blood Transfusion Reaction / Comm: no previous blood transfusions Past Psychological History: Depression Smoking Status: Former smoker Past Alcohol Use History: None Reported Past Drug Use History: None Reported - Past Family History Mother Family Medical History: Coronary Artery Disease (CAD), CVA/TIA Father Family Medical History: CVA/TIA Medications and Allergies Home Medications Medication Instructions Recorded Confirmed Type Atorvastatin [Lipitor] 20 mg PO DAILY 07/26/14 08/23/21 History Ferrous Sulfate [Feosol] 325 mg PO BID 08/25/15 08/23/21 History Cholecalciferol [Vitamin D3 (25 50 unit PO DAILY 11/21/15 08/23/21 History Mcg = 1000 Iu)] Apixaban [Eliquis] 2.5 mg PO BID tablet 11/25/15 08/23/21 Rx Albuterol Sulfate [Ventolin HFA] 2 puff INHALATION RT-Q4H PRN 08/23/21 08/23/21 History Alendronate Sodium 70 mg PO MO 08/23/21 08/23/21 History Furosemide [Lasix] 20 mg PO DAILY 08/23/21 08/23/21 History Multivit with Calcium,Iron,Min 1 tab PO DAILY 08/23/21 08/23/21 History [Women's Multivitamin] Omeprazole Magnesium [PriLOSEC OTC] 20 mg PO DAILY PRN 08/23/21 08/23/21 History Potassium Chloride [Potassium 10 meq PO DAILY 08/23/21 08/23/21 History Chloride ER] Allergies Allergy/AdvReac Type Severity Reaction Status Date / Time Penicillins Allergy Rash/Hives Verified 08/23/21 14:15 Physical Exam Vitals: Vital Signs Temp Pulse Resp BP Pulse Ox 08/23/21 15:00 98.2 F 78 16 128/78 98 08/23/21 13:04 54 L 18 124/82 99 08/23/21 11:52 62 16 116/86 97 08/23/21 11:12 98.2 F 68 18 116/86 95 Intake and Output 08/23/21 08/23/21 08/23/21 06:59 14:59 22:59 Other: Weight 86.183 kg GENERAL: The patient is alert and oriented x3, not in any acute distress. Well developed, well nourished. HEENT: Pupils are round and equally reacting to light. EOMI. No scleral icterus. No conjunctival pallor. Normocephalic, atraumatic. No pharyngeal erythema. No thyromegaly. CARDIOVASCULAR: S1 and S2 present. No murmurs, rubs, or gallops. PULMONARY: Chest is clear to auscultation, no wheezing or crackles. -ABDOMEN: Soft, mild epigastric tenderness, distended, normoactive bowel sounds. No palpable organomegaly. MUSCULOSKELETAL: No joint swelling or deformity. EXTREMITIES: No cyanosis, clubbing, or pedal edema. NEUROLOGICAL: Gross neurological examination did not reveal any focal deficits. SKIN: No rashes. No petechiae Results CBC & Chem 7: 08/23/21 11:18 08/23/21 11:18 Labs: Abnormal Lab Results - Last 24 Hours (Table) 08/23/21 08/23/21 08/23/21 Range/Units 11:18 11:18 11:18 APTT 21.5 L (22.0-30.0) sec Chloride 109 H (98-107) mmol/L BUN 19 H (7-17) mg/dL Glucose 135 H (74-99) mg/dL Plasma Lactic Acid Hank 2.3 H* (0.7-2.0) mmol/L Urine Appearance (Clear) Ur Leukocyte Esterase (Negative) Urine WBC (0-5) /hpf Ur Squamous Epith Cells (0-4) /hpf Urine Bacteria (None) /hpf Hyaline Casts (0-2) /lpf Urine Mucus (None) /hpf 08/23/21 Range/Units 11:45 APTT (22.0-30.0) sec Chloride (98-107) mmol/L BUN (7-17) mg/dL Glucose (74-99) mg/dL Plasma Lactic Acid Hank (0.7-2.0) mmol/L Urine Appearance Cloudy H (Clear) Ur Leukocyte Esterase Small H (Negative) Urine WBC 6 H (0-5) /hpf Ur Squamous Epith Cells 25 H (0-4) /hpf Urine Bacteria Many H (None) /hpf Hyaline Casts 11 H (0-2) /lpf Urine Mucus Rare H (None) /hpf Assessment and Plan Assessment: -Dilated transverse colon Suspected secondary to Hirschsprung's disease versus mecolon -Duodenal mass measuring up to 3.3 cm compared to 1.7 cm few years ago in 2016. Possible GIST, carcinoid tumor, adenocarcinoma -Subtle hypodensity along the central uterus. -History of intestinal resection secondary to Hirschsprung's disease -Obesity -History of atrial fibrillation -Deep venous thrombosis by history -Hyperlipidemia History of osteoarthritis History of right breast cancer status post number ectomy -History of depression, not an active issue Plan: This is a pleasant 81 years old female who presents with abdominal distention with adrenal mass and possible uterine density Based looks very complicated, discussed with the surgeon on-call Dr. Maxwell by ENT team who recommended patient to transfer to tertiary care center. Therefore we agree with this recommendation to transfer the patient to higher level of care and tertiary care center This information are related to the patient while her daughter and sister are at bedside with recommendation to transfer to her level of care and they are in agreement Discussed with the ER attending Prognosis remains guarded Thank you for consulting us
[2021-08-23] MEDS ORDERED: APIXABAN 2.5 MG TABLET PO SCH (21:00)
== END 2021-08-23 15:00 | disposition other institution (70) ==
LOC: EC 11:05 → 5NMEDONC 13:25 → UNDOADMIN 13:25 → EC 15:00 → UNDODISIN 15:00
DX: E86.0 Dehydration (principal); R19.00 Intra-abdominal and pelvic swelling, mass and lump, unspecified site; R11.2 Nausea with vomiting, unspecified; I48.91 Unspecified atrial fibrillation; E78.5 Hyperlipidemia, unspecified; F32.A Depression, unspecified; M19.90 Unspecified osteoarthritis, unspecified site; Z87.891 Personal history of nicotine dependence; Z79.01 Long term (current) use of anticoagulants; Z79.899 Other long term (current) drug therapy; Z86.718 Personal history of other venous thrombosis and embolism
CPT/HCPCS: 36415; 93005; 83880; 80053; 83605; 83735; 84484; 85025; 85610; 85730; 81001; 71046; 74177; 99291; 96374; 96375 ×2; 96361; J1200; J2405; Q9967

== ENCOUNTER → 2021-10-12 | Outpatient (CLI) | payer MEDICARE, BC ==
--- NOTE | 2021-10-12 17:06 | BD ---
EXAMINATION TYPE: Axial Bone Density DATE OF EXAM: 10/12/2021 CLINICAL HISTORY: 81 years year old Female. ICD-10 CODE: Z03.89 suspected Mets, Z79.890 Post menopa usal w/ Height: 63 Weight: 187.7 FRAX RISK QUESTIONS: Alcohol (3 or more units per day): NO Family History (Parent hip fracture): NO Glucocorticoids (More than 3mos): NO History of Fracture in Adulthood: NO Secondary Osteoporosis: 1. Type 1 Diabetes: NO 2. Hyperthyroidism: NO 3. Menopause before 45: NO 4. Malnutrition: NO 5. Chronic liver disease: NO Rheumatoid Arthritis: NO Current Tobacco Use: NO RISK FACTORS HISTORY OF: Hip Fracture (Right/Left): NO Spine Fracture: NO History of Wrist Fracture: NO Surgery to Spine/Hip(right/left)/Wrist (right/left): NO Family History of Osteoporosis: NO Active: NO Diet low in dairy products/other sources of calcium: YES Postmenopausal woman: YES Take estrogen and/or progesterone medications: NO Lost more than 2 inches in height since high school: YES Frequent falls: YES Poor Health: YES Hyperparathyroidism: NO Adrenal Insufficiency: NO MEDICATIONS: Prednisone or other steroids: NO Thyroid Medications: NO Osteoporosis Medications: YES Which medication: FOSAMAX How Long: ONE YEAR Additional Medications: ATORVASTATIN, FERROUS, OMEPRAZOLE, MULTI VIT., FENOFIBRATE, FOSAMAX, VIT D. E LIQUIS, FUROSEMIDE Additional History: EXAM MEASUREMENTS: Bone mineral densitometry was performed using the [employer] System. Bone mineral density as measured about the Lumbar spine is: ----- L1-L4(G/cm2): 1.076 T Score Values are as follows: ----- L1: -2.5 ----- L2: -0.78 ----- L3: -0.3 ----- L4: 0.2 ----- L1-L4: -0.9 Bone mineral density has: INCREASED 5 % since study of: 12/28/2020 Bone mineral density about the R hip (g/cm2): 0.772 Bone mineral density about the L hip (g/cm2): 0.755 T Score values are as follows: -----R Neck: -1.9 -----L Neck: -2.0 -----R Total: -1.4 -----L Total: -0.9 Bone mineral density has: DECREASED 2.1 % since study of: 12/28/2020 FRAX%s: The graph provided illustrates a 22.7%7.5% chance for a major osteoporotic fx and a chance fo r the hips probability for fx in 10 years time. IMPRESSION: Osteopenia (T Score between -2.5 and -1). There is slightly increased risk of fracture and the patient may be considered for treatment. Re-Screen 2-5 years. NOTE: T-SCORE=SD OF THE YOUNG ADULT MEAN.
== END | disposition home or self-care (01) ==
LOC: RADBDWWP 14:23
PROVIDERS: ATTEND Internal Medicine Hematology & Oncology
DX: M85.89 Other specified disorders of bone density and structure, multiple sites (principal); Z78.0 Asymptomatic menopausal state; Z79.890 Hormone replacement therapy
CPT/HCPCS: 77080

== ENCOUNTER → 2022-06-13 | Outpatient (CLI) | payer MEDICARE, BC ==
--- NOTE | 2022-06-13 14:01 | MM ---
Reason for Exam: Hx of breast cancer, conservation therapy. Last mammogram was performed 1 year(s) and 5 month(s) ago. Patient History: Menarche at age 13. First Full-Term at age 26. Postmenopausal. Breast cancer, right, age 75. Previous chest radiation therapy at age 75. 08/27/2015, Malignant Core Biopsy on the right side. 07/16/2015, Malignant Core Biopsy on the right side. Tissue Density: There are scattered fibroglandular densities. Findings: Analyzed By CAD. Chronic nodularity in the left breast. Asymmetry on the CC view in the left breast, middle depth does not persist with compression. Postsurgical and posttherapy changes in the right breast. No new suspicious mass or calcifications. Dystrophic calcifications are demonstrated at the surgical site. Overall Assessment: Benign, BI-RAD 2 Management: Screening Mammogram of both breasts in 1 year. A clinical breast exam by your physician is recommended on an annual basis and results should be correlated with mammographic findings. This exam should not preclude additional follow-up of suspicious palpable abnormalities. Results were given to the patient verbally at the time of exam. Electronically signed and approved by: Gilbert Hernández D.O.
== END | disposition home or self-care (01) ==
LOC: RADMAMWWP 13:02
PROVIDERS: ATTEND Internal Medicine Hematology & Oncology
DX: Z85.3 Personal history of malignant neoplasm of breast (principal); Z92.3 Personal history of irradiation; Z78.0 Asymptomatic menopausal state
CPT/HCPCS: 77066; G0279; 77062

== ENCOUNTER 2022-06-17 06:47 | Day surgery (SDC) | payer MEDICARE, BC, OTHER ==
[2022-06-15 12:34] VITALS: BMI 30.7
[2022-06-17] MEDS ORDERED: LACTATED RINGERS 1,000 ML IV SCH (07:10)
[2022-06-17 07:42] VITALS: TEMP 97.6
[2022-06-17] MEDS ORDERED: PROPOFOL 10 MG/ML 20 ML VIAL IV ONE (08:15)
--- NOTE | 2022-06-17 08:49 | P.PCN ---
Date of Procedure: 06/17/22 Procedure(s) Performed: BRIEF HISTORY: Patient is a 82-year-old pleasant White female scheduled for an elective colonoscopy as a part of evaluation of lower abdominal pain and change in bowel habits for the last several months duration PROCEDURE PERFORMED: Colonoscopy upto transverse colon. PREOPERATIVE DIAGNOSIS: lower abdominal pain and change in bowel habits. IV sedation per Anesthesia. PROCEDURE: After informed consent was obtained, the patient, was brought into the endoscopy unit. IV sedation was administered by Anesthesia under continuous monitoring. Digital rectal examination was normal. Initially the Olympus CF-160 flexible video colonoscope was then inserted in the rectum, gradually advanced into the the transverse colon and further advancement was not possible because of extremely redundant and dilated colon. Despite abdominal pressure I was not able to advance the scope any further because of extreme redundancy. Careful examination was performed as the scope was gradually being withdrawn. prep was extremely poor and several areas of the colon. The visualized portions of the transverse colon, descending colon, sigmoid colon, and rectum appeared normal. Retroflexion was performed in the rectum and no lesions were seen. The patient tolerated the procedure well. IMPRESSION: Extremely redundant and dilated colon Incomplete colonoscopy up to the transverse colon poor prep RECOMMENDATIONS: Findings of this examination were discussed with the patient as well as her caregiver. At this time she will continue with laxatives on a daily basis.
[2022-06-17 09:07] VITALS: BP 109/73; PULSE 66; RESP 20
== END 2022-06-17 09:24 | disposition home or self-care (01) ==
LOC: ORWHC2ENDO 06:47
PROVIDERS: ATTEND Internal Medicine Gastroenterology
DX: R19.4 Change in bowel habit (principal); I10 Essential (primary) hypertension; E78.5 Hyperlipidemia, unspecified; I48.91 Unspecified atrial fibrillation; F41.9 Anxiety disorder, unspecified; F32.A Depression, unspecified; Z79.899 Other long term (current) drug therapy; Z88.0 Allergy status to penicillin
CPT/HCPCS: 45378; J2704; 45380

== ENCOUNTER → 2023-06-22 | Outpatient (CLI) | payer MEDICARE, BC, OTHER ==
--- NOTE | 2023-06-23 19:20 | MM ---
Reason for Exam: Screening (asymptomatic). Last screening mammogram was performed 12 month(s) ago. Patient History: Menarche at age 13. First Full-Term at age 26. Postmenopausal. Breast cancer, right, age 75. Previous chest radiation therapy at age 75. 08/27/2015, Malignant Core Biopsy on the right side. 07/16/2015, Malignant Core Biopsy on the right side. Prior Study Comparison: 07/16/2015 Right Diagnostic Mammogram, [facility]. 12/28/2020 Bilateral Diagnostic Mammogram, [facility]. 06/13/2022 Bilateral MG 3D diag mammo w/cad [facility], [facility]. Tissue Density: There are scattered fibroglandular densities. Findings: Analyzed By CAD. Postsurgical and posttreatment changes right breast redemonstrated. Chronic nodularity on the left. There is no suspicious group of microcalcifications or new suspicious mass in either breast. Overall Assessment: Benign, BI-RAD 2 Management: Screening Mammogram of both breasts in 1 year. . Patient should continue monthly self-breast exams. A clinical breast exam by your physician is recommended on an annual basis. This exam should not preclude additional follow-up of suspicious palpable abnormalities. Electronically signed and approved by: Mildred Arellano M.D. Radiologist
== END | disposition home or self-care (01) ==
LOC: RADMAMWWP 14:27
PROVIDERS: ATTEND Internal Medicine Hematology & Oncology
DX: Z12.31 Encounter for screening mammogram for malignant neoplasm of breast (principal); Z78.0 Asymptomatic menopausal state; Z85.3 Personal history of malignant neoplasm of breast
CPT/HCPCS: 77063; 77067

== ENCOUNTER → 2024-06-24 | Outpatient (CLI) | payer MEDICARE, BC, OTHER ==
--- NOTE | 2024-06-24 14:57 | MM ---
Reason for Exam: Screening (asymptomatic). Last screening mammogram was performed 12 month(s) ago. Patient History: Menarche at age 13. First Full-Term at age 26. Postmenopausal. Breast cancer, right, age 75. Previous chest radiation therapy at age 75. 08/27/2015, Malignant Core Biopsy on the right side. 07/16/2015, Malignant Core Biopsy on the right side. Prior Study Comparison: 12/28/2020 Bilateral Diagnostic Mammogram, [facility]. 06/13/2022 Bilateral MG 3D diag mammo w/cad [place], [facility]. 06/22/2023 Bilateral MG 3D screening mammo w/cad, [facility]. Tissue Density: There are scattered areas of fibroglandular density. Findings: Analyzed By CAD. Right breast surgical clips. Right breast: There is no suspicious group of microcalcifications or new suspicious mass. Benign-appearing calcifications right breast. Left breast: There is no suspicious group of microcalcifications or new suspicious mass. Overall Assessment: Benign, BI-RAD 2 Management: Screening Mammogram of both breasts in [address] [facility] will attempt to contact patient to return for supplemental views and ultrasound if indicated. Patient should continue monthly self-breast exams. A clinical breast exam by your physician is recommended on an annual basis. This exam should not preclude additional follow-up of suspicious palpable abnormalities. Note on Annamaria scores and lifetime risk: 1. A Annamaria score greater than 3% is considered moderate risk. If this is the case, consider specialist referral to assess eligibility for a risk reducing agent. 2. If overall lifetime risk for the development of breast cancer is 20% or higher, the patient may qualify for future screening with alternating mammogram and breast MRI. [facility], , 06/24/2024 2:54 PM. Electronically signed and approved by: Mehdi Ruiz DO
== END | disposition home or self-care (01) ==
LOC: RADMAMWWP 14:25
PROVIDERS: ATTEND Internal Medicine Hematology & Oncology
DX: Z12.31 Encounter for screening mammogram for malignant neoplasm of breast (principal); Z78.0 Asymptomatic menopausal state; Z85.3 Personal history of malignant neoplasm of breast; R92.323 Mammographic fibroglandular density, bilateral breasts; Z98.82 Breast implant status
CPT/HCPCS: 77063; 77067